=== PATIENT | female | born 1945 | race Asian ===

== ENCOUNTER 2018-11-17 11:15 | Emergency (ER) | payer MEDICARE, OTHER ==
[~2018-11-17] VITALS: Wt 61.9 kg
[~2018-11-17 11:15] MED LIST: MECL25TA2; METF-849; METOPROLOL PO; PRAVASTATIN PO; [UNRECOGNIZED DRUG - CODE]
[2018-11-17] MEDS ORDERED: SODIUM CHLORIDE 0.9% 1L BAG IV* STA (11:23)
[2018-11-17] MEDS ORDERED: CEFEPIME 2GM/50 ML (PMX) 50 ML IVPB STA (11:23)
[2018-11-17] MEDS ORDERED: ACETAMINOPHEN 500 MG TAB PO STA (11:23)
[2018-11-17] MEDS ORDERED: VANCOMYCIN 1 GM (PMX) 250 ML IVPB ONE (11:30)
[2018-11-17] MEDS ORDERED: METF500T24 PO (12:29)
[2018-11-17] MEDS ORDERED: CELE200C PO (12:29)
[2018-11-17] MEDS ORDERED: PRAV20TA63 PO (12:29)
[2018-11-17] MEDS ORDERED: ALEN70TA5 PO (12:30)
[2018-11-17] MEDS ORDERED: CLOP75TA19 PO (12:30)
[2018-11-17] MEDS ORDERED: METO-429 PO (12:31)
[2018-11-17 13:37] VITALS: BP 131/58; PULSE 94; RESP 18
--- NOTE | 2018-11-17 13:43 | ERD ---
ER Documentation Chief Complaint Chief Complaint SHAKING LAST NIGHT, C/O BODYACHES, NOT FEELING WELL, FEVER HPI This is a 73-year-old female with a known history of [id number] diabetes mellitus hypertension presents to the emergency department with 24 hours of diffuse myalgias dry cough. She indicates she had a tactile fever with shaking and chills. No antipyretics were taken. The patient also complains of frequency urgency and dysuria. She has had no recent travel or hospitalizations. She had no sick contacts. She denies any shortness of breath at rest or exertion. She has no chest pain. ROS All systems reviewed and are negative except as per history of present illness. Medications Home Meds Reported Medications Metoprolol Tartrate* (Lopressor*) 50 Mg Tab, 50 MG PO DAILY, #60 TAB 11/17/18 Clopidogrel Bisulfate* (Clopidogrel Bisulfate*) 75 Mg Tablet, 75 MG PO DAILY, #30 TAB 11/17/18 Alendronate Sodium* (Fosamax*) 70 Mg Tablet, 70 MG PO Q7D, #4 TAB 11/17/18 Pravastatin Sodium* (Pravastatin Sodium*) 20 Mg Tablet, 20 MG PO HS, TAB 11/17/18 Metformin Hcl* (Metformin Hcl*) 500 Mg Tablet, 500 MG PO WITH BREAKFAST DINNE, #60 TAB 11/17/18 Celecoxib* (Celebrex*) 200 Mg Capsule, 200 MG PO DAILY, CAP 11/17/18 Discontinued Reported Medications [Pravastatin] No Conflict Check, PO 12/09/13 [Metoprolol] No Conflict Check, PO 12/09/13 Metformin* (Glucophage*) 500 Mg Tab 10/23/09 Meclizine Hcl* (Antivert*) 25 Mg Tablet 10/23/09 Verapamil Hcl (Isoptin Sr) 240 Mg Tablet.sa 10/23/09 Allergies Allergies: Coded Allergies: aspirin (Verified Allergy, Mild, 11/17/18) PMhx/Soc History of Surgery: No Anesthesia Reaction: No Hx Neurological Disorder: No Hx Respiratory Disorders: No Hx Cardiac Disorders: Yes (HTN, HIGH CHOLESTEROL) Hx Psychiatric Problems: No Hx Miscellaneous Medical Probl: No Hx Alcohol Use: No Hx Substance Use: No Hx Tobacco Use: No Smoking Status: Never smoker Physical Exam Vitals Vital Signs Date Temp Pulse Resp B/P (MAP) Pulse Ox O2 O2 Flow FiO2 Time Delivery Rate 11/17/18 97 19 129/57 95 Room Air 12:23 (81) 11/17/18 101.9 104 18 147/65 97 11:18 (92) Physical Exam Constitutional:Well-developed. Well-nourished. HEENT:Normocephalic. Atraumatic.Pupils were equal round reactive to light. Dry mucous membranes.No tonsillar exudates. Neck: No nuchal rigidity. No lymphadenopathy. No posterior cervical spine tenderness or step-offs. Respiratory: Not using accessory muscles of respiration.Lungs were clear to auscultation bilaterally. No rhonchi. No rales. No wheezing. Cardiovascular: Regular rate regular rhythm.No murmurs. No rubs were appreciated.S1, S2 normal. Distal pulses are palpable 2+ bilaterally. GI: Abdomen was soft. Nontender. Non Distended. No pulsatile abdominal masses or bruits. No rebound. No guarding. Bowel sounds were present and normal. Muscle skeletal: Full range of motion of both the upper and lower extremities bilaterally.Normal muscle tone.No assymetrical calf tenderness or swelling. Skin: No petechia, no purpura. No lesions on the palms or the soles of the feet. No maculopapular rash. NEURO: Patient was alert, awake, orientated x3.No facial droop. Gait observed and normal with no ataxia.Speech had regular rate and rhythm. No focal neurological deficits. Result Diagram: 11/17/18 1129 11/17/18 1129 Results 24 hrs Laboratory Tests Test 11/17/18 11:23 11/17/18 11:29 11/17/18 11:39 11/17/18 13:15 Blood Gas Blood arterial Specimen Source Arterial Blood 11/17/2018 11:52 Date Drawn :10 AM Arterial Blood 7.486 pH (Temp corrected ) Arterial Blood 27.9 mmhg pCO2 (Temp correct) Arterial Blood 78.1 mmHG pO2 (Temp corrected ) Arterial Blood 20.6 mmol/L HCO3 Arterial Blood -1.7 mmol/L Base Excess Arterial Blood 95.7 mmHG Oxygen Saturati on Darion Test ACCEPTAB Arterial Blood Right Radial Gas Puncture Site Arterial 0.3 % Blood Carboxyhe moglobin Arterial Blood 0.3 % Methemoglobin Blood Gas A-a 38.2 mmHg O2 Differential Oxyhemoglobin 95.1 % Percent Blood Gas 37.0 C Temperature Blood Gas ROOM AIR Modality FiO2 21.0 % Blood Gas M.D. Notified Whom Blood Gas 11/17/2018 12:00 Notified Time :34 PM White Blood 10.5 10^3/ul Count Red Blood Count 3.98 10^6/ul Hemoglobin 12.2 g/dl Hematocrit 37.7 % Mean 94.7 fl Corpuscular Volume Mean 30.7 pg Corpuscular Hemoglobin Mean 32.4 g/dl Corpuscular Hemoglobin Conc ent Red Cell 12.1 % Distribution Width Platelet Count 191 10^3/UL Mean Platelet 10.3 fl Volume Immature 0.400 % Granulocytes % Neutrophils % 86.7 % Lymphocytes % 5.5 % Monocytes % 6.0 % Eosinophils % 1.0 % Basophils % 0.4 % Nucleated Red 0.0 /100WBC Blood Cells % Immature 0.040 10^3/ul Granulocytes # Neutrophils # 9.1 10^3/ul Lymphocytes # 0.6 10^3/ul Monocytes # 0.6 10^3/ul Eosinophils # 0.1 10^3/ul Basophils # 0.0 10^3/ul Nucleated Red 0.0 10^3/ul Blood Cells # Prothrombin 12.1 Sec Time Prothrombin 0.9 Time Ratio INR 0.89 International Normalized Rati o Activated 27.0 Sec Partial Thrombo plast Time Sodium Level 142 mmol/L Potassium Level 3.8 mmol/L Chloride Level 106 mmol/L Carbon Dioxide 22 mmol/L Level Anion Gap 14 Blood Urea 10 mg/dl Nitrogen Creatinine 0.54 mg/dl Est Glomerular mL/min Filtrat Rate mL/min Glucose Level 210 mg/dl Calcium Level 9.1 mg/dl Total Bilirubin 0.8 mg/dl Direct 0.00 mg/dl Bilirubin Indirect 0.8 mg/dl Bilirubin Aspartate Amino 26 IU/L Transf (AST/SGO T) Alanine 17 IU/L Aminotransferas e (ALT/SGPT) Alkaline 61 IU/L Phosphatase Troponin I 0.097 ng/ml B-Type 806 PG/ML Natriuretic Peptide Total Protein 6.6 g/dl Albumin 4.0 g/dl Globulin 2.60 g/dl Albumin/Globuli 1.53 n Ratio Amylase Level 43 U/L Lipase 79 U/L POC Venous 4.3 mmol/L Lactate Urine Color COLORLESS Urine Clarity CLEAR Urine pH 7.0 Urine Specific 1.003 Sachse Urine Ketones NEGATIVE mg/dL Urine Nitrite NEGATIVE mg/dL Urine Bilirubin NEGATIVE mg/dL Urine NEGATIVE mg/dL Urobilinogen Urine Leukocyte 2+ Shanon/ul Esterase Urine 1 /HPF Microscopic RBC Urine 42 /HPF Microscopic WBC Urine Bacteria FEW /HPF Urine 1+ mg/dL Hemoglobin Urine Glucose 1+ mg/dL Urine Total NEGATIVE mg/dl Protein Current Medications Medications Dose Sig/Adonay Start Time Status Last (Trade) Ordered Route PRN Stop Time Admin Dose Reason Admin Sodium 2,400 ml BOLUS OVER 2 11/17/18 DC 11/17/18 Chloride HOURS STAT 11:23 12:46 (NS) IV* 11/17/18 11:25 Cefepime HCl 50 ml @ ONCE STAT 11/17/18 DC 11/17/18 100 mls/hr IVPB 11:23 12:46 11/17/18 11:52 Vancomycin 250 ml @ ONCE ONCE 11/17/18 DC 11/17/18 HCl 125 mls/hr IVPB 11:30 12:57 11/17/18 13:29 1,000 mg ONCE STAT 11/17/18 DC 11/17/18 Acetaminophen PO 11:23 12:46 (Tylenol 11/17/18 11:25 Tab) Procedures/MDM The patient presented to the emergency department with generalized myalgias and fever. She had Sirs criteria and was positive for sepsis with an elevated lactate. Patient's infectious symptoms have not stabilized and the patient is at risk of rapid decompensation. The patient will be admitted for careful hydration, antibiotic therapy, and infectious source control. Severe Sepsis Assessment: Infectious Source:pyleonephritis End organ damage indicated by: Lactate > 2.0 mmol/L Severe Sepsis Managment: Blood Cultures X 2 before broad spectrum antibiotics initiated within 3 hours of recognition. 30 ml/kg NS bolus Completed Initial Lactate: 4.3 Repeat Lactate pending Septic Shock Assessment (1 hour post 30 ml/kg fluid bolus): Hypotension (SBP < 90 or 40 mmHg drop, MAP < 65): No Lactic acid > 4.0 Yes Perfusion Reassessment for Septic Shock with repeat vitals taken at 1223 Temp 98.2, Pulse 129, RR 16, BP 129/57 Heart Exam: Tachycardic Lung Exam: No Crackles Capillary Refill: Less than 2 seconds Peripheral Pulses: Radially present Skin: NOrmal I considered further perfusion assessment with CVP measurement, SCVO2, bedside ultrasound volume assessment, passive leg raise, trial of further fluid bolus. And preceded with IV fluids and given vancomycin and cefepime. 12 Lead EKG tracing ordered and reviewed by myself showed: Normal sinus rhythm of 93 bpm and no arrhythmia. ND interval normal. QRS duration normal. No ST segment elevation No ST segment depression. No changes consistent with acute ischemia. I obtained a 1 view chest radiograph there is no evidence of pneumonia. Influenza swab is currently pending. The patient did have pyuria in her urine and suggested source with pyelonephritis. The patient was given antipyretics in the emergency department and a 30 cc/kg bolus of normal saline. However the patient was a medical capacity to make her own decisions. She stated she wanted to leave AGAINST MEDICAL ADVICE despite me explaining the risks which could lead to worsening of her condition such as . The patient has a caregiver who was at bedside who stated they will return to the emergency department immediately if there is any worsening of the patient's symptoms. I did however discharge the patient with antibiotics given a prescription of Keflex. Critical Care: Time: 65 minutes Treatments/Evaluations: Close monitoring and treatment of unstable vital signs, cardiorespiratory, and neurologic status, while maintaining tight balance of fluid, respiratory, and cardiac interventions. Time does not include performing any of the above billable procedures. Departure Diagnosis: Primary Impression: Severe sepsis Additional Impression: Pyelonephritis Condition: Serious BINA ALVES MD Nov 17, 2018 13:43
[2018-11-17] MEDS ORDERED: IBUP-1542 PO (13:44)
[2018-11-17] MEDS ORDERED: ACET500C5 PO (13:44)
[2018-11-17] MEDS ORDERED: CEPH-443 PO (13:44)
== END 2018-11-17 14:00 | disposition left against medical advice (07) ==
LOC: E/R 11:15
DX: A41.9 Sepsis, unspecified organism (principal); R65.20 Severe sepsis without septic shock; N12 Tubulo-interstitial nephritis, not specified as acute or chronic; I10 Essential (primary) hypertension; E11.9 Type 2 diabetes mellitus without complications; Z79.01 Long term (current) use of anticoagulants; Z79.84 Long term (current) use of oral hypoglycemic drugs
CPT/HCPCS: 36415; 36600; 71045; 80053; 81001; 82150; 82803; 83605; 83690; 83880; 84484; 85025; 85610; 85730; 87040; 87086; 87400; 93005; 96374; 96375; 99291; J0692; J3370; J7030